=== PATIENT | female | born 2000 | race Caucasian/White ===

== ENCOUNTER → 2022-04-17 16:45 | Outpatient (BNVA) | payer OTHER, SELFPAY | PROVIDERS: Family Provider Family Medicine; PCP Family Medicine; Visit Provider Obstetrics & Gynecology | DX: E28.2 Polycystic ovarian syndrome (principal) | CPT/HCPCS: 83036; 83525 ==

== ENCOUNTER → 2022-05-01 15:57 | Outpatient (BNVA) | payer OTHER, SELFPAY | PROVIDERS: Family Provider Family Medicine; PCP Family Medicine; Visit Provider Nurse Practitioner Women's Health | DX: E28.2 Polycystic ovarian syndrome (principal) | CPT/HCPCS: 76830 ==

== ENCOUNTER → 2022-10-10 14:00 | Outpatient (BNVA) | payer OTHER, SELFPAY | PROVIDERS: Family Provider Family Medicine; PCP Family Medicine; Visit Provider Obstetrics & Gynecology | DX: Z01.419 Encounter for gynecological examination (general) (routine) without abnormal findings (principal) | CPT/HCPCS: 88175 ==

== ENCOUNTER 2023-03-09 09:47 | Outpatient (CLI) | payer OTHER, SELFPAY ==
--- NOTE | 2023-03-09 09:54 | NM_ITS ---
WS: [id number] NUCLEAR MEDICINE HIDA SCAN WITH GALLBLADDER EJECTION FRACTION HISTORY: ABDOMINAL PAIN COMPARISON: Gallbladder ultrasound 02/05/2023. TECHNIQUE: The patient was intravenously injected with 7.6 mCi of TC99m Mebrofenin. Immediate imaging over the right upper quadrant was followed by 5 minute image and additional images for a total of 60 minutes. Normal uptake of radiotracer throughout the liver. Liver appears enlarged. Activity identified in the gallbladder at 90 minutes. Very poor distention of the gallbladder. In par t this is due to body habitus. Gallbladder is not well visualized. Activity in the proximal small bowel was seen by 40 minutes. Good washout of the radiotracer from the liver by 60 minutes. The patient then drank 8 ounces of Ensure Plus. Ejection fraction at 60 minutes was 69%. Normal GB ej ection fraction is 35-75%. Post fatty meal symptoms: None. NM/NM hepatobiliary w phar* [id number] IMPRESSION: 1. Gallbladder is only minimally visualized. In part this may be due to body h abitus. There is poor visualization of the gallbladder. 2. Normal gallbladder ejection fraction.
== END 2023-03-09 09:48 | disposition home or self-care (01) ==
LOC: RAD 09:49
PROVIDERS: PCP Family Medicine; Visit Provider Family Medicine
DX: R10.9 Unspecified abdominal pain (principal)
CPT/HCPCS: 78227; A9537

== ENCOUNTER 2024-04-09 21:16 | Emergency (ER) | payer OTHER, SELFPAY ==
[2024-04-09 21:20] VITALS: BP 147/82; PULSE 70; RESP 17; TEMP 36.6; O2SAT 98; BMI 53.0
[2024-04-09 22:11] LABS: Basophils % 0.5 %; Eosinophils % 1.5 %; Hematocrit 42.7 % (36-47); Lymphocytes # 3.4 10^3/uL (0.8-4.8); Lymphocytes % 36.4 %; Mean Corpuscular HGB Conc 32.1 g/dL (30-55); Mean Corpuscular Hemoglobin 27.7 pg (27-33); Mean Corpuscular Volume 86.3 fl (85-98); Mean Platelet Volume 10.5 fL (7.4-10.4); Monocytes % 6.7 %; Neutrophils # 5.13 10^3/uL (1.8-7.7); Neutrophils % 54.5 %; Platelet Count 301 10^3/cmm (157-399); Red Blood Count 4.95 10^6/uL (3.85-5.65); Red Cell Distribution Width 14.3 % (12.1-15.1); White Blood Count 9.42 10^3/uL (3.29-11.43)
[2024-04-09 22:12] LABS: Basophils # 0.1 10^3/uL (0.0-0.1); Charge for UA Resulting for Rev; Eosinophils # 0.1 10^3/uL (0.0-0.8); Monocytes # 0.6 10^3/uL (0.2-0.9); Nucleated Red Blood Cells % 0 %
[2024-04-09 22:14] LABS: Bilirubin Urine Negative (Negative); Blood Urine Negative (Negative); Glucose Urine UA Negative (Normal); Ketones Urine Negative (Negative); Leukocyte Esterase Urine Negative (Negative); Nitrate Urine Negative (Negative); Protein Urine Negative (Negative); Urine Appearance Clear (CLEAR); Urine Color Yellow (Yellow); pH Urine 7.5 (5-7)
[2024-04-09 22:18] LABS: Bacteria Urine None Seen /hpf; Hyaline Casts Urine 0.81 /lpf; Squamous Epithelial Cell Urine 0-5 /hpf (0-5); WBC Urine 0-5 /hpf (0-5)
--- NOTE | 2024-04-09 22:25 | W.ED.DIZZY ---
Documented by User: [email or web address] Chen 04/09/24 22:58 HPI - Dizziness General: Chief Complaint: Dizziness Stated Complaint: lightheaded dizzy Source: patient Mode of arrival: ambulatory Limitations: no limitations History of Present Illness: HPI Narrative: Patient is a 23-year-old female presenting to the emergency department complaining of lightheadedness and dizziness beginning a few hours ago prior to arrival. Was not significantly exerting herself, states she has never had this problem before states that she does not think she has been drinking of water. Also has not taken anything [id number] such as meclizine. She is denying any chest pain, palpitations, syncopal episodes, or other concerning symptoms at this time. She comments that when she closes her eyes, she feels as if the room is spinning and that her head is full. MD elicited complaint: dizziness and lightheadedness Onset (ago): hour(s) Timing: sudden onset Severity: moderate Description: room spinning History of similar symptoms: No Exacerbating factors: change in body position Associated symptoms: Denies chest pain, chills, headache(s), nausea, palpitations or vomiting Associated neuro symptoms: Deny numbness in extremities Related Data Home Medications Medication Instructions Recorded Confirmed citalopram 20 mg tablet 20 mg PO DAILY 03/03/22 11/16/23 diphenhydramine HCl 25 mg capsule 25 mg PO ONCE PRN 03/03/22 11/16/23 (Benadryl) hydroxyzine HCl 25 mg tablet 25 mg PO TID PRN 03/03/22 11/16/23 omeprazole 20 mg capsule,delayed 20 mg PO DAILY PRN 03/03/22 11/16/23 release metformin 500 mg tablet,extended 1,000 mg PO DAILY 11/16/23 release 24 hr Previous Rx's Medication Instructions Recorded levofloxacin 500 mg tablet 500 mg PO DAILY 7 days #7 tabs 11/18/23 metronidazole 500 mg tablet 500 mg PO BID 7 days #14 tabs 11/18/23 levonorgestrel-ethinyl estradiol See Rx Instructions .Route 01/18/24 0.1 mg-20 mcg tablet .COMPLEX #84 tabs Allergies Allergy/AdvReac Type Severity Reaction Status Date / Time azithromycin [From Zithromax] Allergy lip swell Verified 04/09/24 21:23 up Penicillins Allergy rash Verified 04/09/24 21:23 Review of Systems General: Reports: 10 or more systems reviewed and unremarkable except in HPI and below Const: Denies: fever(s), chills or fatigue Eyes: Denies: change in vision ENMT: Denies: throat pain, ear or mastoid pain or nasal discharge Card: Reports: lightheadedness; Denies: chest pain, palpitations or swelling of feet/ankles Resp: Denies: dyspnea, productive cough or wheezing GI: Denies: abdominal pain, nausea, vomiting, diarrhea or constipation : Denies: flank pain, difficulty voiding, dysuria or urinary frequency Musc: Denies: neck pain, back pain or joint pain Skin/Breast: Denies: rash Neuro: Reports: dizziness; Denies: headache(s), numbness in extremities or weakness in extremities PFSH ED PFSH: Medical History History of PCOS High serum testosterone Surgical History H/O adenoidectomy Hx of tonsillectomy Family History Father Diabetes Hypertension Mother Depression Anxiety Hypertension Unknown Heart disease Denies family history of Colon cancer Ovarian cancer Prostate cancer Hyperlipidemia Breast cancer Uterine cancer Thyroid disease Stroke Physical Exam Const: COMMON NORMALS: no acute distress, patient oriented x3 and no limitations GENERAL APPEARANCE: cooperative, comfortable and well developed ORIENTATION/CONSCIOUSNESS: Yes awake, Yes oriented to person, Yes oriented to place and Yes oriented to time HENMT: COMMON NORMALS: normocephalic, atraumatic and hearing grossly normal bilaterally HEAD & SCALP: normocephalic and atraumatic Eye: COMMON NORMALS: Equal, round and reactive pupils present, EOMs intact bilaterally and conjunctivae normal CONJUNCTIVA: Yes conjunctivae normal PUPIL: Yes Equal, round and reactive pupils present Neck/C-Spine: COMMON NORMALS: full ROM, supple and no JVD Resp: COMMON NORMALS: normal respiratory effort, No retractions, No use of accessory muscles and clear to auscultation bilaterally AUSCULTATION: clear to auscultation bilaterally Cardio: COMMON NORMALS: no JVD, regular rate, regular rhythm, No clicks present (Cardio), No murmurs present (Cardio) and No rub (Cardio) RATE: regular rate RHYTHM: regular rhythm GI: COMMON NORMALS: Normal to inspection, nondistended, normoactive bowel sounds present, Soft to palpation and non-tender AUSCULTATION: Yes normoactive bowel sounds PALPATION: Yes Soft to palpation RECTAL EXAM: deferred Extremity: COMMON NORMALS: normal to inspection, full ROM and capillary refill normal Neuro: COMMON NORMALS: patient oriented x3, CN's II-XII intact bilaterally, moves all extremities, no focal motor deficits and no sensory deficits noted SENSORIUM/ORIENTATION: Yes oriented to person, Yes oriented to place and Yes oriented to time Skin: COMMON NORMALS: no rashes or lesions noted GENERAL SKIN EXAM: no rashes or lesions noted Course Vital Signs: Vital signs: Vital Signs Temperature 98 F 04/09/24 21:20 Pulse Rate 61 04/09/24 22:51 Respiratory Rate 16 04/09/24 22:51 Blood Pressure 124/83 04/09/24 22:51 Pulse Oximetry 97 04/09/24 22:51 Oxygen Delivery Me thod Room Air 04/09/24 21:20 [facility] - Dizziness Medical Decision Making Patient presented with acute onset lightheaded and dizziness, stating that it felt like her room is spinning. No history of vertigo reported. Vitals unremarkable on arrival, did note lack of fluid intake. This could potentially be causing similar. Dizziness, however it favors BPPV at this time due to positional exacerbation. Her labs and urinalysis were unremarkable. EKG did not demonstrate any acute arrhythmias, showing sinus bradycardia rate 56. No reason for further workup at this time, she is given a dose of meclizine here and instructed to continue taking this [id number]-[id number]. Also instructed to increase her fluid intake and follow-up with primary care provider early next week. Reasons to return were discussed Lab Data 04/09/24 22:05 04/09/24 22:05 Laboratory Results WBC 9.42 10^3/uL (3.29-11.43) 04/09/24 22:05 RBC 4.95 10^6/uL (3.85-5.65) 04/09/24 22:05 Hgb 13.70 g/dL (11.27-16.99) 04/09/24 22:05 Hct 42.7 % (36-47) 04/09/24 22:05 MCV 86.3 fl (85-98) 04/09/24 22:05 MCH 27.7 pg (27-33) 04/09/24 22:05 MCHC 32.1 g/dL (30-55) 04/09/24 22:05 RDW 14.3 % (12.1-15.1) 04/09/24 22:05 Plt Count 301 10^3/cmm (157-399) 04/09/24 22:05 MPV 10.5 fL (7.4-10.4) H 04/09/24 22:05 Neut % (Auto) 54.5 % 04/09/24 22:05 Lymph % (Auto) 36.4 % 04/09/24 22:05 [place] % (Auto) 6.7 % 04/09/24 22:05 Eos % (Auto) 1.5 % 04/09/24 22:05 Baso % (Auto) 0.5 % 04/09/24 22:05 Neut # (Auto) 5.13 10^3/uL (1.8-7.7) 04/09/24 22:05 Lymph # (Auto) 3.4 10^3/uL (0.8-4.8) 04/09/24 22:05 [place] # (Auto) 0.6 10^3/uL (0.2-0.9) 04/09/24 22:05 Eos # (Auto) 0.1 10^3/uL (0.0-0.8) 04/09/24 22:05 Baso # (Auto) 0.1 10^3/uL (0.0-0.1) 04/09/24 22:05 Nucleated RBC % (auto) 0 % 04/09/24 22:05 Nucleated RBCs # 0.0 /100WBC 04/09/24 22:05 Sodium 143 mmol/L (136-145) 04/09/24 22:05 Potassium 4.3 mmol/L (3.5-5.1) 04/09/24 22:05 Chloride 107 mmol/L (98-107) 04/09/24 22:05 Carbon Dioxide 26 mmol/L (22-29) 04/09/24 22:05 Anion Gap 14.3 (5-19) 04/09/24 22:05 BUN 8 mg/dL (6-20) 04/09/24 22:05 Creatinine 0.8 mg/dL (0.5-0.9) 04/09/24 22:05 GFR Calculation 88.1 mL/min (90-130) L 04/09/24 22:05 Glucose 101 mg/dL (65-115) 04/09/24 22:05 Calculated Osmolality 294 mOsm/kg (285-295) 04/09/24 22:05 Calcium 8.9 mg/dL (8.5-10.5) 04/09/24 22:05 Total Bilirubin 0.3 mg/dL (0.15-1.2) 04/09/24 22:05 AST 23 U/L (0-32) 04/09/24 22:05 ALT 27 U/L (0-33) 04/09/24 22:05 Alkaline Phosphatase 80 U/L (35-105) 04/09/24 22:05 Total Protein 7.2 g/dL (6.6-8.7) 04/09/24 22:05 Albumin 4.2 g/dL (3.5-5.2) 04/09/24 22:05 Globulin 3.0 g/dL (1.3-4.6) 04/09/24 22:05 HCG, Qual Negative (Negative) 04/09/24 22:05 Urine Color Yellow (Yellow) 04/09/24 22:05 Urine Appearance Clear (CLEAR) 04/09/24 22:05 Urine pH 7.5 (5-7) 04/09/24 22:05 Ur Specific [place] 1.020 (1.005-1.030) 04/09/24 22:05 Urine Protein Negative (Negative) 04/09/24 22:05 Urine Glucose (UA) Negative (Normal) 04/09/24 22:05 Urine Ketones Negative (Negative) 04/09/24 22:05 Urine Blood Negative (Negative) 04/09/24 22:05 Urine Nitrate Negative (Negative) 04/09/24 22:05 Urine Bilirubin Negative (Negative) 04/09/24 22:05 Urine Urobilinogen 1.0 mg/dL (Negative) 04/09/24 22:05 Ur Leukocyte Esterase Negative (Negative) 04/09/24 22:05 Urine RBC 6-10 /hpf (0-2) 04/09/24 22:05 Urine WBC 0-5 /hpf (0-5) 04/09/24 22:05 Ur Squamous Epith Cells 0-5 /hpf (0-5) 04/09/24 22:05 Amorphous Sediment Not Reportable 04/09/24 22:05 Urine Bacteria None seen /hpf (NONE) 04/09/24 22:05 Hyaline Casts 0.81 /lpf 04/09/24 22:05 No radiology studies performed this visit Discharge Plan Discharge Patient Disposition: Home Clinical Impression: Benign paroxysmal positional vertigo Qualifiers: Laterality: unspecified laterality Qualified Code(s): H81.10 - Benign paroxysmal vertigo, unspecified ear Condition: Stable Prescriptions: No Action citalopram 20 mg tablet 20 mg PO DAILY hydroxyzine HCl 25 mg tablet 25 mg PO TID PRN omeprazole 20 mg capsule,delayed release(DR/EC) 20 mg PO DAILY PRN diphenhydramine HCl [Benadryl] 25 mg capsule 25 mg PO ONCE PRN metformin 500 mg tablet extended release 24 hr 1,000 mg PO DAILY metronidazole 500 mg tablet 500 mg PO BID 7 Days Qty: 14 0RF levofloxacin 500 mg tablet 500 mg PO DAILY 7 Days Qty: 7 0RF levonorgestrel-ethinyl estrad 0.1-20 mg-mcg tablet See Rx Instructions .ROUTE .COMPLEX Qty: 84 0RF Dose Instruction: Take 1 tablet by mouth once daily Rx Instructions: Take 1 tablet by mouth once daily Discharge Orders: Discharge ED (Routine); Ordered 04/09/24 Ordered By: Nico Stinson Referrals: Avelino Ahmadi MD [Primary Care Provider] - Discharge Diet: As Directed Discharge Activity: Increase activity as tolerated Patient Instructions: Benign Paroxysmal Positional Vertigo (ED) Activity Restrictions/Additional Instructions: Plenty of fluids. Xzly-jrh-[id number] meclizine. Follow-up with your primary care provider as discussed. Return with any worsening symptoms. Coding Level of Care Code ED Track Walker for Chg Fwd Documented by User: Antonio Emmanuel Raciel, 04/10/24 03:28 HPI - Dizziness General: Chief Complaint: Dizziness Stated Complaint: lightheaded dizzy Related Data Home Medications Medication Instructions Recorded Confirmed citalopram 20 mg tablet 20 mg PO DAILY 03/03/22 11/16/23 diphenhydramine HCl 25 mg capsule 25 mg PO ONCE PRN 03/03/22 11/16/23 (Benadryl) hydroxyzine HCl 25 mg tablet 25 mg PO TID PRN 03/03/22 11/16/23 omeprazole 20 mg capsule,delayed 20 mg PO DAILY PRN 03/03/22 11/16/23 release metformin 500 mg tablet,extended 1,000 mg PO DAILY 11/16/23 release 24 hr Previous Rx's Medication Instructions Recorded levofloxacin 500 mg tablet 500 mg PO DAILY 7 days #7 tabs 11/18/23 metronidazole 500 mg tablet 500 mg PO BID 7 days #14 tabs 11/18/23 levonorgestrel-ethinyl estradiol See Rx Instructions .Route 01/18/24 0.1 mg-20 mcg tablet .COMPLEX #84 tabs Allergies Allergy/AdvReac Type Severity Reaction Status Date / Time azithromycin [From Zithromax] Allergy lip swell Verified 04/09/24 21:23 up Penicillins Allergy rash Verified 04/09/24 21:23 PFSH ED PFSH: Medical History History of PCOS High serum testosterone Surgical History H/O adenoidectomy Hx of tonsillectomy Family History Father Diabetes Hypertension Mother Depression Anxiety Hypertension Unknown Heart disease Denies family history of Colon cancer Ovarian cancer Prostate cancer Hyperlipidemia Breast cancer Uterine cancer Thyroid disease Stroke Course Vital Signs: Vital signs: Vital Signs Temperature 98 F 04/09/24 21:20 Pulse Rate 61 04/09/24 22:51 Respiratory Rate 16 04/09/24 22:51 Blood Pressure 124/83 04/09/24 22:51 Pulse Oximetry 97 04/09/24 22:51 Oxygen Delivery Me thod Room Air 04/09/24 21:20 MDM - Dizziness Medical Decision Making Patient presented with acute onset lightheaded and dizziness, stating that it felt like her room is spinning. No history of vertigo reported. Vitals unremarkable on arrival, did note lack of fluid intake. This could potentially be causing similar. Dizziness, however it favors BPPV at this time due to positional exacerbation. Her labs and urinalysis were unremarkable. EKG did not demonstrate any acute arrhythmias, showing sinus bradycardia rate 56. No reason for further workup at this time, she is given a dose of meclizine here and instructed to continue taking this [id number]-[id number]. Also instructed to increase her fluid intake and follow-up with primary care provider early next week. Reasons to return were discussed This patient was originally seen by Mr. Shantell PA-C.? I agree with his history, evaluation, and treatment. Lab Data 04/09/24 22:05 04/09/24 22:05 Laboratory Results WBC 9.42 10^3/uL (3.29-11.43) 04/09/24 22:05 RBC 4.95 10^6/uL (3.85-5.65) 04/09/24 22:05 Hgb 13.70 g/dL (11.27-16.99) 04/09/24 22:05 Hct 42.7 % (36-47) 04/09/24 22:05 MCV 86.3 fl (85-98) 04/09/24 22:05 MCH 27.7 pg (27-33) 04/09/24 22:05 MCHC 32.1 g/dL (30-55) 04/09/24 22:05 RDW 14.3 % (12.1-15.1) 04/09/24 22:05 Plt Count 301 10^3/cmm (157-399) 04/09/24 22:05 MPV 10.5 fL (7.4-10.4) H 04/09/24 22:05 Neut % (Auto) 54.5 % 04/09/24 22:05 Lymph % (Auto) 36.4 % 04/09/24 22:05 [place] % (Auto) 6.7 % 04/09/24 22:05 Eos % (Auto) 1.5 % 04/09/24 22:05 Baso % (Auto) 0.5 % 04/09/24 22:05 Neut # (Auto) 5.13 10^3/uL (1.8-7.7) 04/09/24 22:05 Lymph # (Auto) 3.4 10^3/uL (0.8-4.8) 04/09/24 22:05 [place] # (Auto) 0.6 10^3/uL (0.2-0.9) 04/09/24 22:05 Eos # (Auto) 0.1 10^3/uL (0.0-0.8) 04/09/24 22:05 Baso # (Auto) 0.1 10^3/uL (0.0-0.1) 04/09/24 22:05 Nucleated RBC % (auto) 0 % 04/09/24 22:05 Nucleated RBCs # 0.0 /100WBC 04/09/24 22:05 Sodium 143 mmol/L (136-145) 04/09/24 22:05 Potassium 4.3 mmol/L (3.5-5.1) 04/09/24 22:05 Chloride 107 mmol/L (98-107) 04/09/24 22:05 Carbon Dioxide 26 mmol/L (22-29) 04/09/24 22:05 Anion Gap 14.3 (5-19) 04/09/24 22:05 BUN 8 mg/dL (6-20) 04/09/24 22:05 Creatinine 0.8 mg/dL (0.5-0.9) 04/09/24 22:05 GFR Calculation 88.1 mL/min (90-130) L 04/09/24 22:05 Glucose 101 mg/dL (65-115) 04/09/24 22:05 Calculated Osmolality 294 mOsm/kg (285-295) 04/09/24 22:05 Calcium 8.9 mg/dL (8.5-10.5) 04/09/24 22:05 Total Bilirubin 0.3 mg/dL (0.15-1.2) 04/09/24 22:05 AST 23 U/L (0-32) 04/09/24 22:05 ALT 27 U/L (0-33) 04/09/24 22:05 Alkaline Phosphatase 80 U/L (35-105) 04/09/24 22:05 Total Protein 7.2 g/dL (6.6-8.7) 04/09/24 22:05 Albumin 4.2 g/dL (3.5-5.2) 04/09/24 22:05 Globulin 3.0 g/dL (1.3-4.6) 04/09/24 22:05 HCG, Qual Negative (Negative) 04/09/24 22:05 Urine Color Yellow (Yellow) 04/09/24 22:05 Urine Appearance Clear (CLEAR) 04/09/24 22:05 Urine pH 7.5 (5-7) 04/09/24 22:05 Ur Specific [place] 1.020 (1.005-1.030) 04/09/24 22:05 Urine Protein Negative (Negative) 04/09/24 22:05 Urine Glucose (UA) Negative (Normal) 04/09/24 22:05 Urine Ketones Negative (Negative) 04/09/24 22:05 Urine Blood Negative (Negative) 04/09/24 22:05 Urine Nitrate Negative (Negative) 04/09/24 22:05 Urine Bilirubin Negative (Negative) 04/09/24 22:05 Urine Urobilinogen 1.0 mg/dL (Negative) 04/09/24 22:05 Ur Leukocyte Esterase Negative (Negative) 04/09/24 22:05 Urine RBC 6-10 /hpf (0-2) 04/09/24 22:05 Urine WBC 0-5 /hpf (0-5) 04/09/24 22:05 Ur Squamous Epith Cells 0-5 /hpf (0-5) 04/09/24 22:05 Amorphous Sediment Not Reportable 04/09/24 22:05 Urine Bacteria None seen /hpf (NONE) 04/09/24 22:05 Hyaline Casts 0.81 /lpf 04/09/24 22:05 Discharge Plan Discharge Patient Disposition: Home Clinical Impression: Benign paroxysmal positional vertigo Qualifiers: Laterality: unspecified laterality Qualified Code(s): H81.10 - Benign paroxysmal vertigo, unspecified ear Condition: Stable Prescriptions: No Action citalopram 20 mg tablet 20 mg PO DAILY hydroxyzine HCl 25 mg tablet 25 mg PO TID PRN omeprazole 20 mg capsule,delayed release(DR/EC) 20 mg PO DAILY PRN diphenhydramine HCl [Benadryl] 25 mg capsule 25 mg PO ONCE PRN metformin 500 mg tablet extended release 24 hr 1,000 mg PO DAILY metronidazole 500 mg tablet 500 mg PO BID 7 Days Qty: 14 0RF levofloxacin 500 mg tablet 500 mg PO DAILY 7 Days Qty: 7 0RF levonorgestrel-ethinyl estrad 0.1-20 mg-mcg tablet See Rx Instructions .ROUTE .COMPLEX Qty: 84 0RF Dose Instruction: Take 1 tablet by mouth once daily Rx Instructions: Take 1 tablet by mouth once daily Discharge Orders: Discharge ED (Routine); Ordered 04/09/24 Ordered By: Nico Stinson Referrals: Avelino Ahmadi MD [Primary Care Provider] - Discharge Diet: As Directed Discharge Activity: Increase activity as tolerated Patient Instructions: Benign Paroxysmal Positional Vertigo (ED) Activity Restrictions/Additional Instructions: Plenty of fluids. [id number] meclizine. Follow-up with your primary care provider as discussed. Return with any worsening symptoms. Coding Level of Care Code ED Track Walker for Jose Angel Garcia
[2024-04-09 22:27] LABS: HCG, Serum Qual Negative (Negative)
[2024-04-09 22:28] LABS: Alanine Aminotransferase 27 U/L (0-33); Albumin Level 4.2 g/dL (3.5-5.2); Alkaline Phosphatase 80 U/L (35-105); Anion Gap 14.3 (5-19); Aspartate Amino Transferase 23 U/L (0-32); Blood Urea Nitrogen 8 mg/dL (6-20); Calcium 8.9 mg/dL (8.5-10.5); Carbon Dioxide 26 mmol/L (22-29); Chloride 107 mmol/L (98-107); Creatinine Clr Calc Pharmacy 141.5266; Glomerular Filtration Rate 88.1 mL/min (90-130); Glucose 101 mg/dL (65-115); Osmolality Calculated 294 mOsm/kg (285-295); Potassium 4.3 mmol/L (3.5-5.1); Sodium 143 mmol/L (136-145); Total Bilirubin 0.3 mg/dL (0.15-1.2); Total Protein 7.2 g/dL (6.6-8.7)
[2024-04-09 22:35] VITALS: BP 140/90; PULSE 60; RESP 16; O2SAT 99
--- NOTE | 2024-04-09 22:35 | ECG_ITS ---
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
[2024-04-09] MEDS: meclizine 25 mg tablet 50 MG PO (22:36)
[2024-04-09 22:39] LABS: UA Slide Review UA Slide Review Perf
[2024-04-09 22:51] VITALS: BP 124/83; PULSE 61; RESP 16; O2SAT 97
== END 2024-04-09 22:53 | disposition home or self-care (01) ==
PROVIDERS: Emergency Provider Physician Assistant; PCP Family Medicine
DX: H81.10 Benign paroxysmal vertigo, unspecified ear (principal); Z79.84 Long term (current) use of oral hypoglycemic drugs
CPT/HCPCS: 80053; 81003; 81015; 84703; 85025; 93005; 99284; J8597

== ENCOUNTER → 2025-05-15 13:00 | Outpatient (BNVA) | payer OTHER, SELFPAY | PROVIDERS: PCP Family Medicine; Visit Provider Nurse Practitioner Women's Health | DX: E28.2 Polycystic ovarian syndrome (principal) | CPT/HCPCS: 84144 ==